=== PATIENT | female | born 1995 | race Caucasian/White ===

== ENCOUNTER 2016-06-14 22:06 | Emergency (ER) | payer OTHER ==
[2016-06-14] MEDS ORDERED: ACETAMINOPHEN 500 MG TAB ONE (22:26)
[2016-06-14] MEDS ORDERED: IBUPROFEN 600 MG TAB PO ONE ×2 (22:26→22:28)
[2016-06-14] MEDS ORDERED: ACETAMINOPHEN 500 MG TAB PO ONE (22:28)
[2016-06-14 22:31] VITALS: BP 128/97; PULSE 122; RESP 20; TEMP 102; O2SAT 97
[2016-06-14] MEDS ORDERED: OSELTAMIVIR PHOSPHATE 75 MG CAP PO ONE (23:12)
--- NOTE | 2016-06-14 23:15 | UCPHY ---
H & P Time Seen by Provider: 06/14/16 22:47 Patient Type: New HPI/ROS: This patient complains of fevers nasal congestion with myalgias and occasional dry cough. She also has a sore throat. Her symptoms started 2 days ago. She has had fevers as high as 103. She reports prominent myalgias. No other associated symptoms. ROS: No significant fatigue or other constitutional symptoms. HEENT: No headache. No ear pain. Pulmonary: No pleuritic pain or dyspnea. Cardiovascular : No lightheadedness. GI: No nausea or vomiting. 10 point ROS is otherwise negative. Past Medical/Surgical History: Otherwise healthy Social History: [employer] student Smoking Status: Never smoked Physical Exam: Physical Exam General: No acute distress HEENT: Nose: Clear discharge bilaterally. No sinus tenderness to percussion. Ears: External canals and tympanic membranes are clear with no erythema or abnormal findings bilaterally. Oropharynx: No erythema or exudates. No dysphonia. No drooling or stridor. Eyes: Pupils equal and react to light. Extraocular motions are intact. Neck: Supple with no meningismus. Lungs: Clear to auscultation bilaterally with no rales, rhonchi or wheeze. No respiratory distress. Cardiac: Tachycardia with no murmur gallop or rub Skin: No rash or pallor. Neuro: Alert with no focal deficits noted. Initial differential diagnosis: Influenza, viral pharyngitis, strep pharyngitis , Constitutional: Initial Vital Signs Temperature (C) 38.9 C H 06/14/16 22:24 Heart Rate 122 H 06/14/16 22:24 Respiratory Rate 20 06/14/16 22:24 Blood Pressure 128/97 H 06/14/16 22:24 O2 Sat (%) 97 06/14/16 22:24 O2 Delivery Mode Room Air Allergies/Adverse Reactions: No Known Allergies Allergy (Unverified 06/14/16 22:22) Home Medications: Medication Instructions Recorded Bcp 06/14/16 Oseltamivir Phosphate [Tamiflu 75 75 mg PO BID #10 cap 06/14/16 mg (*)] Medical Decision Making ED Course/Re-evaluation: Rapid flu and rapid strep were negative Discussion: Patient's presentation is classic for influenza which is very prevalent our community at this time including amongst the [employer] [employer] [facility]. I think that she does have influenza despite the negative rapid flu. I counseled regarding this. She is given a 1st dose of Tamiflu as well as ibuprofen and Tylenol. Her tachycardia is commensurate with her fever but she does not have clinical evidence of lower respiratory infection, toxicity or other concerning findings. - Data Points Laboratory Results: 06/14/16 06/14/16 06/14/16 Unknown 22:40 22:18 Influenza Typ A,B (DFA) NEGATIVE FOR FLU (NEGATIVE) Group A Strep Screen NEGATIVE (NEGATIVE) Group A Strep DNA Pending Medications Given: Discontinued Medications Acetaminophen (Tylenol) 500 mg PO EDNOW ONE Stop: 06/14/16 22:29 Last Admin: 06/14/16 22:35 Dose: 500 mg Ibuprofen (Motrin) 600 mg PO EDNOW ONE Stop: 06/14/16 22:29 Last Admin: 06/14/16 22:35 Dose: 600 mg Oseltamivir Phosphate (Tamiflu) 75 mg PO EDNOW ONE Stop: 06/14/16 23:13 Last Admin: 06/14/16 23:20 Dose: 75 mg Departure - Departure Disposition: Home, Routine, Self-Care Clinical Impression: Influenza Condition: Good Instructions: Influenza (ED) Additional Instructions: Diagnosis: Influenza Plan: Take Tamiflu Ibuprofen and Tylenol for fevers and aches Drink plenty fluids Humidifier No school until 24 hours after your fever has resolved. Return here to the emergency department for any significant worsening despite treatment plan. Referrals: NONE *PRIMARY CARE P,. [Primary Care Provider] - As per Instructions Stand Alone Forms: School Excuse Prescriptions: Oseltamivir Phosphate [Tamiflu 75 mg (*)] 75 mg PO BID #10 cap - PQRS PQRS Measurement: NA
== END 2016-06-14 23:20 | disposition home or self-care (01) ==
LOC: CED 22:06
DX: J11.1 Influenza due to unidentified influenza virus with other respiratory manifestations (principal)
CPT/HCPCS: 87400-PO; 87880-PO; 99203-PO; G0463-PO